=== PATIENT | male | born 1960 | race African-American/Black ===

== ENCOUNTER 2016-09-03 13:20 | Emergency (ER) | payer OTHER, MEDICAID ==
[~2016-09-03] VITALS: Ht 172.7 cm; Wt 87.0 kg
[~2016-09-03 13:20] MED LIST: VICODIN
[2016-09-03] MEDS ORDERED: KETOROLAC 60MG/2ML VIAL IM ONE (14:45)
[2016-09-03 16:51] VITALS: BP 112/68
== END 2016-09-03 16:52 | disposition home or self-care (01) ==
LOC: ER 13:53
DX: S93.402A Sprain of unspecified ligament of left ankle, initial encounter (principal); S93.602A Unspecified sprain of left foot, initial encounter; Z96.659 Presence of unspecified artificial knee joint; W22.8XXA Striking against or struck by other objects, initial encounter; Y93.89 Activity, other specified; Y92.013 Bedroom of single-family (private) house as the place of occurrence of the external cause
CPT/HCPCS: 73610; 73630; 96372; 99284; J1885

== ENCOUNTER 2016-09-18 12:45 | Emergency (ER) | payer OTHER, MEDICAID ==
[~2016-09-18] VITALS: Ht 172.7 cm; Wt 83.0 kg
[2016-09-18] MEDS ORDERED: KETOROLAC 60MG/2ML VIAL IM ONE (16:00)
[2016-09-18 16:15] VITALS: BP 103/71
== END 2016-09-18 18:03 | disposition home or self-care (01) ==
LOC: ER 16:16
DX: L03.113 Cellulitis of right upper limb (principal); M25.561 Pain in right knee
CPT/HCPCS: 73030; 73060; 73200; 73562; 96372; 99284; J1885

== ENCOUNTER 2016-10-31 10:48 | Inpatient (IN) | payer OTHER, MEDICAID ==
[~2016-10-31] VITALS: Ht 172.7 cm; Wt 81.6 kg
[2016-10-31] MEDS ORDERED: SODIUM CHLORIDE 0.9% 1,000 ML IV ONE (11:50)
[2016-10-31] MEDS ORDERED: VANCOMYCIN 1 G PREMIX 200 ML IV SCH (12:00)
[2016-10-31] MEDS ORDERED: SODIUM CHLORIDE 0.9% 10ML VIAL ONE (12:08)
[2016-10-31] MEDS ORDERED: IOHEXOL-300 100 ML BOTTLE ONE (12:08)
[2016-10-31] MEDS ORDERED: HYDROCODONE/ACETAMINOPHEN 5/325MG TABLET PO ONE (12:45)
[2016-10-31 12:47] LABS: CLARITY URINE CLEAR (CLEAR); COLOR URINE YELLOW (YELLOW); GLUCOSE URINE NEGATIVE (NEGATIVE); KETONES URINE NEGATIVE (NEGATIVE); LEUKOCYTE ESTERASE URINE TRACE (NEGATIVE); NITRITE URINE NEGATIVE (NEGATIVE); OCCULT BLOOD URINE NEGATIVE (NEGATIVE); PH URINE 7.5 (4.5-8.0); PROTEIN URINE NEGATIVE (NEGATIVE); SPECIFIC GRAVITY URINE 1.022 (1.005-1.030)
[2016-10-31 13:14] LABS: INR 1.1; PROTHROMBIN TIME 11.9 sec (9.4-11.6)
[2016-10-31 13:16] LABS: BASOPHILS % 0.3 % (0.0-2.0); EOSINOPHILS % 1.7 % (0.0-5.0); HEMATOCRIT. 29.4 % (42.0-52.0); HEMOGLOBIN. 9.6 g/dL (14.0-18.0); LYMPHOCYTES % 24.3 % (20.0-50.0); MEAN CORPUSCULAR HEMOGLOBIN 23.1 pg (28.0-32.0); MEAN CORPUSCULAR VOLUME 70.8 fL (80.0-94.0); MEAN PLATELET VOLUME 7.8 fl (7.4-10.4); MONOCYTES % 11.7 % (2.0-8.0); PLATELET 330 x1000/uL (130-400); RED BLOOD CELL COUNT 4.15 mill/uL (4.7-6.1); RED CELL DISTRIBUTION WIDTH 20.7 % (11.6-14.6)
[2016-10-31 13:17] LABS: CARBON DIOXIDE 30 mEq/L (21-32); CHLORIDE 102 mEq/L (98-107)
[2016-10-31 13:23] LABS: TROPONIN I < 0.02 ng/mL (0.00-0.04)
[2016-10-31] MEDS ORDERED: IPRATROPIUM/ALBUTEROL 0.5-3(2.5)MG/3ML NEB INH PRN (16:45)
[2016-10-31] MEDS ORDERED: CLONIDINE 0.1MG TABLET PO PRN (16:45)
[2016-10-31] MEDS ORDERED: MAGNESIUM/ALUMINUM HYDROXIDE/SIMETHICONE 30ML UDC PO PRN (16:45)
[2016-10-31] MEDS ORDERED: ONDANSETRON HCL 4MG/2ML VIAL IV PRN (16:45)
[2016-10-31] MEDS ORDERED: ACETAMINOPHEN 325MG TABLET PO PRN (16:45)
[2016-10-31 17:17] LABS: *AMPHETAMINES SCREEN URINE NEGATIVE (NEGATIVE); *BARBITURATES SCREEN URINE NEGATIVE (NEGATIVE); *BENZODIAZEPINES SCREEN URINE NEGATIVE (NEGATIVE); *COCAINE SCREEN URINE PRESUMTIVE POSITIVE (NEGATIVE); CANNABINOID URINE SCREEN PRESUMTIVE POSITIVE (NEGATIVE); METHADONE URINE SCREEN NEGATIVE (NEGATIVE); OPIATES URINE SCREEN NEGATIVE (NEGATIVE); PHENCYCLIDINE URINE SCREEN PRESUMTIVE POSITIVE (NEGATIVE)
[2016-10-31 17:24] LABS: CHLORIDE 101 mEq/L (98-107)
[2016-10-31 17:29] LABS: CARBON DIOXIDE 31 mEq/L (21-32)
[2016-10-31 21:25] VITALS: BP 122/80
[2016-10-31 21:30] VITALS: BP 122/80
[2016-10-31] MEDS: PIPERACILLIN/TAZ 3.375G PREMIX 50 ML IV SCH (23:49)
[2016-11-01] VITALS: BP 128/75
[2016-11-01] MEDS ORDERED: VANCOMYCIN 1 G PREMIX 200 ML IV NR
[2016-11-01] MEDS: HYDROCODONE/ACETAMINOPHEN 5/325MG TABLET PO PRN ×3 (00:41→23:35)
[2016-11-01] MEDS ORDERED: CEPH500C2 PO (01:42)
[2016-11-01 06:14] LABS: BASOPHILS % 0.6 % (0.0-2.0); EOSINOPHILS % 2.2 % (0.0-5.0); HEMATOCRIT. 30.6 % (42.0-52.0); HEMOGLOBIN. 10.1 g/dL (14.0-18.0); LYMPHOCYTES % 27.2 % (20.0-50.0); MEAN CORPUSCULAR HEMOGLOBIN 22.9 pg (28.0-32.0); MEAN CORPUSCULAR VOLUME 69.5 fL (80.0-94.0); MONOCYTES % 9.1 % (2.0-8.0); NEUTROPHILS % 60.9 % (40.0-76.0); PLATELET 333 x1000/uL (130-400)
[2016-11-01] MEDS: PIPERACILLIN/TAZ 3.375G PREMIX 50 ML IV SCH ×3 (06:14→22:44)
[2016-11-01 08:00] VITALS: BP 118/67
[2016-11-01] MEDS: ENOXAPARIN 40MG/0.4ML SYR SUBCUT SCH (09:32)
[2016-11-01] MEDS: VANCOMYCIN 750 MG PREMIX 150 ML IV SCH ×2 (09:32→15:37)
[2016-11-01 12:00] VITALS: BP 104/67
[2016-11-01] MEDS ORDERED: GADOBENATE DIMEGLUMINE 529 MG/ML 10ML IV ONE (14:51)
[2016-11-01 16:00] VITALS: BP 119/77
[2016-11-01 20:00] VITALS: BP 128/68
[2016-11-02] VITALS: BP 113/59
[2016-11-02] MEDS: VANCOMYCIN 750 MG PREMIX 150 ML IV SCH ×3 (00:23→17:09)
[2016-11-02 04:00] VITALS: BP 120/62
[2016-11-02] MEDS: PIPERACILLIN/TAZ 3.375G PREMIX 50 ML IV SCH ×4 (06:50→22:31)
[2016-11-02 06:53] LABS: BASOPHILS % 0.6 % (0.0-2.0); EOSINOPHILS % 2.4 % (0.0-5.0); HEMATOCRIT. 31.6 % (42.0-52.0); HEMOGLOBIN. 10.4 g/dL (14.0-18.0); LYMPHOCYTES % 25.4 % (20.0-50.0); MEAN CORPUSCULAR HEMOGLOBIN 22.9 pg (28.0-32.0); MEAN CORPUSCULAR VOLUME 69.5 fL (80.0-94.0); MEAN PLATELET VOLUME 8.4 fl (7.4-10.4); MONOCYTES % 10.2 % (2.0-8.0); NEUTROPHILS % 61.4 % (40.0-76.0); PLATELET 341 x1000/uL (130-400); RED BLOOD CELL COUNT 4.54 mill/uL (4.7-6.1); RED CELL DISTRIBUTION WIDTH 21.1 % (11.6-14.6)
[2016-11-02 07:13] LABS: CHLORIDE 99 mEq/L (98-107)
[2016-11-02 07:19] LABS: CARBON DIOXIDE 26 mEq/L (21-32); VANCOMYCIN TROUGH 18.2 ug/mL (5.0-10.0)
[2016-11-02 08:00] VITALS: BP 108/64
[2016-11-02] MEDS: ENOXAPARIN 40MG/0.4ML SYR SUBCUT SCH (08:19)
[2016-11-02] MEDS: HYDROCODONE/ACETAMINOPHEN 5/325MG TABLET PO PRN ×2 (11:44→22:30)
[2016-11-02 12:00] VITALS: BP 109/65
[2016-11-02 16:00] VITALS: BP 117/70
[2016-11-02] MEDS: SILVER SULFADIAZINE 1% CREAM 50GM TOP SCH ×2 (16:02→22:31)
[2016-11-02 20:00] VITALS: BP 119/72
[2016-11-03] VITALS: BP 107/66
[2016-11-03] MEDS: VANCOMYCIN 750 MG PREMIX 150 ML IV SCH ×3 (01:31→17:07)
[2016-11-03 04:00] VITALS: BP 116/64
[2016-11-03] MEDS: PIPERACILLIN/TAZ 3.375G PREMIX 50 ML IV SCH ×4 (04:23→22:04)
[2016-11-03 08:00] VITALS: BP 101/66
[2016-11-03] MEDS: ENOXAPARIN 40MG/0.4ML SYR SUBCUT SCH (08:26)
[2016-11-03] MEDS: HYDROCODONE/ACETAMINOPHEN 5/325MG TABLET PO PRN ×2 (08:54→22:06)
[2016-11-03 09:02] LABS: INR 1.1; PROTHROMBIN TIME 11.4 sec (9.4-11.6)
[2016-11-03] MEDS ORDERED: BISACODYL 5MG TABLET PO PRN (14:15)
[2016-11-03 16:00] VITALS: BP 117/66
[2016-11-03 20:00] VITALS: BP 111/74
[2016-11-04] VITALS (7 sets, daily range): BP systolic 110–122; BP diastolic 66–73
[2016-11-04] MEDS: VANCOMYCIN 750 MG PREMIX 150 ML IV SCH ×3 (00:04→17:09)
[2016-11-04] MEDS: PIPERACILLIN/TAZ 3.375G PREMIX 50 ML IV SCH ×3 (03:17→16:26)
[2016-11-04 06:43] LABS: BASOPHILS % 0.4 % (0.0-2.0); EOSINOPHILS % 1.7 % (0.0-5.0); HEMATOCRIT. 31.8 % (42.0-52.0); HEMOGLOBIN. 10.6 g/dL (14.0-18.0); LYMPHOCYTES % 22.7 % (20.0-50.0); MEAN CORPUSCULAR HEMOGLOBIN 23.1 pg (28.0-32.0); MEAN CORPUSCULAR VOLUME 69.5 fL (80.0-94.0); MEAN PLATELET VOLUME 8.2 fl (7.4-10.4); MONOCYTES % 10.3 % (2.0-8.0); NEUTROPHILS % 64.9 % (40.0-76.0); PLATELET 349 x1000/uL (130-400); RED BLOOD CELL COUNT 4.58 mill/uL (4.7-6.1); RED CELL DISTRIBUTION WIDTH 20.8 % (11.6-14.6)
[2016-11-04 07:31] LABS: CARBON DIOXIDE 27 mEq/L (21-32); CHLORIDE 99 mEq/L (98-107)
[2016-11-04] MEDS: SILVER SULFADIAZINE 1% CREAM 50GM TOP SCH (09:04)
[2016-11-04] MEDS: ENOXAPARIN 40MG/0.4ML SYR SUBCUT SCH (09:04)
[2016-11-04] MEDS: HYDROCODONE/ACETAMINOPHEN 5/325MG TABLET PO PRN (09:04)
== END 2016-11-04 20:45 | disposition short-term general hospital (02) | DRG 548 ==
LOC: ER 12:28 → 6EST 15:45 → EDBEDREQSVC 15:47 → EDBEDREQ 15:47 → EDBEDREQTM 15:47 → ENRESERV 19:16
PROVIDERS: ADMIT Internal Medicine; ATTEND Internal Medicine
PROC: 0L9 Tendons, Drainage (ICD-10-PCS; principal; 2016-11-03)
PROC: 0R9J3ZZ Drainage of Right Shoulder Joint, Percutaneous Approach (ICD-10-PCS; 2016-11-03)
DX: M00.9 Pyogenic arthritis, unspecified (principal); E43 Unspecified severe protein-calorie malnutrition; L02.413 Cutaneous abscess of right upper limb; D50.9 Iron deficiency anemia, unspecified; K59.00 Constipation, unspecified; F19.10 Other psychoactive substance abuse, uncomplicated; L03.113 Cellulitis of right upper limb; L02.92 Furuncle, unspecified; Z96.653 Presence of artificial knee joint, bilateral; Z68.27 Body mass index [BMI] 27.0-27.9, adult
CPT/HCPCS: 20611; 36415; 71010; 73060; 73223; 73560; 73590; 73700; 80048; 80053; 80061; 80202; 80305; 81001; 83605; 83880; 84443; 84484; 85025; 85610; 85730; 87040; 87070; 87077; 87086; 87205; 93970; 93971; 96361; 96365; 99285; A4216; A9577; C1893; J1650; J2543; J3370; J7030; J7040; Q9967

== ENCOUNTER 2022-10-16 10:58 | Emergency (ER) | payer OTHER, MEDICAID ==
[~2022-10-16] VITALS: Ht 170.2 cm; Wt 74.0 kg
[~2022-10-16 10:58] MED LIST changes: +CEPH500C2 PO
[2022-10-16 10:59] VITALS: O2SAT 100
[2022-10-16 12:03] LABS: HEMATOCRIT. 41.7 % (42.0-52.0); HEMOGLOBIN. 14.2 g/dL (14.0-18.0); MEAN CORPUSCULAR HGB CONC 34.1 g/dL (31.0-37.0); MEAN CORPUSCULAR VOLUME 82.2 fL (80.0-94.0); RED BLOOD CELL COUNT 5.07 mill/uL (4.7-6.1); RED CELL DISTRIBUTION WIDTH 20.3 % (11.6-14.6)
[2022-10-16 12:09] LABS: DIFFERENTIAL COMMENT 1
[2022-10-16 12:15] LABS: CLARITY URINE CLEAR (CLEAR); COLOR URINE YELLOW (YELLOW); GLUCOSE URINE NEGATIVE (NEGATIVE); KETONES URINE NEGATIVE (NEGATIVE); LEUKOCYTE ESTERASE URINE NEGATIVE (NEGATIVE); NITRITE URINE NEGATIVE (NEGATIVE); OCCULT BLOOD URINE NEGATIVE (NEGATIVE); PH URINE 7.5 (4.5-8.0); PROTEIN URINE NEGATIVE (NEGATIVE); UROBILINOGEN URINE 0.2 E.U./dL (0.2-1.0)
[2022-10-16 12:37] LABS: CHLORIDE 104 mEq/L (98-107); INDEX HEMOLYSI 4 (1-3); INDEX ICTERIC 1 (1-4); INDEX LIPEMIC 1 (1-3); SODIUM 134 mEq/L (136-145)
[2022-10-16 12:39] LABS: POTASSIUM 4.6 mEq/L (3.5-5.1)
[2022-10-16 12:40] LABS: PLATELET ESTIMATE SLIGHTL
[2022-10-16 12:41] LABS: PLATELET 116 x1000/uL (130-400)
[2022-10-16 12:47] LABS: ALANINE AMINOTRANSFERASE 21 IU/L (13-61); ALBUMIN 3.3 g/dL (3.4-5.0); ASPARTATE AMINOTRANSFERASE 41 IU/L (15-37); BILIRUBIN TOTAL 0.8 mg/dL (0.1-1.0); CALCIUM 8.5 mg/dL (8.5-10.1); CARBON DIOXIDE 26 mEq/L (21-32); CREATININE 0.8 mg/dL (0.6-1.3); ETHANOL BLOOD < 10 mg/dL (-10); GLUCOSE 113 mg/dL (70-105); PROTEIN TOTAL 7.9 g/dL (6.0-8.3); UREA NITROGEN BLOOD 9 mg/dL (7-21)
[2022-10-16 13:11] LABS: *AMPHETAMINES SCREEN URINE NEGATIVE (NEGATIVE); *BARBITURATES SCREEN URINE NEGATIVE (NEGATIVE); *BENZODIAZEPINES SCREEN URINE NEGATIVE (NEGATIVE); *COCAINE SCREEN URINE NEGATIVE (NEGATIVE); CANNABINOID URINE SCREEN PRESUMTIVE POSITIVE (NEGATIVE); ECSTASY MDMA SCREEN URINE NEGATIVE (NEGATIVE); METHADONE URINE SCREEN NEGATIVE (NEGATIVE); OPIATES URINE SCREEN NEGATIVE (NEGATIVE); PHENCYCLIDINE URINE SCREEN NEGATIVE (NEGATIVE)
[2022-10-16] MEDS ORDERED: CHLORDIAZEPOXIDE 25MG CAPSULE PO ONE (13:30)
[2022-10-16 16:20] VITALS: BP 126/65; PULSE 73; RESP 16; TEMP 98.4
== END 2022-10-16 16:25 | disposition home or self-care (01) ==
LOC: ER 10:58
DX: G40.909 Epilepsy, unspecified, not intractable, without status epilepticus (principal); I49.9 Cardiac arrhythmia, unspecified
CPT/HCPCS: 36415; 80053; 80305; 80320; 81003; 85025; 93005; 99285; G0480